=== PATIENT | female | born 1990 | race Caucasian/White ===

== ENCOUNTER → 2021-05-19 | Outpatient (CLI) | payer OTHER ==
--- NOTE | 2021-05-19 11:32 | KCIC ---
EXAM: Brain MRI without contrast. HISTORY: Blurred vision. TECHNIQUE: Multiplanar, multisequence magnetic resonance imaging of the brain was performed without i ntravenous contrast. COMPARISON: None. FINDINGS: There is no restricted diffusion to suggest acute or subacute infarction. There is no mass effect or midline shift. There is no hydrocephalus. There is no susceptibility effect to suggest hemo rrhage. No suspicious white matter lesion is seen. The orbits are unremarkable. The paranasal sinuses and mastoid air cells are unremarkable. There are normal flow voids within the cerebral vessels. There is no suspicious calvarial lesion. IMPRESSION: No acute intracranial finding. Electronically signed by: Leighann Clemens MD (05/19/2021 11:29 AM) [id number]
== END ==
LOC: KCIC MRI 10:42 → EEVIPCON 11:00
PROVIDERS: ATTEND Physician Assistant Medical
DX: H53.8 Other visual disturbances (principal)
CPT/HCPCS: 70551